=== PATIENT | male | born 1950 | race Caucasian/White ===

== ENCOUNTER 2017-04-15 12:13 | Inpatient (IN) ==
[2017-04-15] MEDS ORDERED: PANTOPRAZOLE 40 MG VIAL IV STA (12:47)
[2017-04-15] MEDS ORDERED: ONDANSETRON 4 MG/2 ML VIAL IV STA (12:47)
[2017-04-15] MEDS ORDERED: SODIUM CHLORIDE 0.9% 1,000 ML IV STA (12:47)
[2017-04-15 13:04] LABS: Basophils % 0.6 % (0.0-0.8); Eosinophils # 0.2 10*3/uL (0.0-0.87); Eosinophils % 2.8 % (0.00-10.9); Hematocrit 43.9 VOL% (42.0-52.0); Hemoglobin 15.7 GM/DL (14.0-18.0); Immature Granulocytes % 0.2 %; Immature Granulocytes Absolute 0.01 #; Lymphocytes # 1.5 10*3/uL (1.4-4.0); Mean Corpuscular HGB Conc 35.8 GM/DL (32-36); Mean Corpuscular Hemoglobin 33 PG (27-34); Mean Corpuscular Volume 93.2 FL (87-102); Mean Platelet Volume 9.1 FL (9.6-12.0); Monocytes # 0.4 10*3/uL (0.11-0.8); Monocytes % 8.1 % (1.7-12.7); Neutrophils # 3.3 10*3/uL (1.4-7.4); Neutrophils % 61.3 % (38.7-73.9); Platelet Count 140 T/CUMM (130-400); Red Blood Count 4.71 MC/CUMM (3.8-5.5); Red Cell Distribution Width 12.6 % (9.3-17.3); White Blood Count 5.4 T/CUMM (4-12)
[2017-04-15] MEDS ORDERED: ONDANSETRON 4 MG/2 ML VIAL ONE (13:07)
[2017-04-15] MEDS ORDERED: PANTOPRAZOLE 40 MG VIAL IV ONE (13:07)
[2017-04-15 13:14] LABS: INR 1.1; PT Patient Result 11.3 SECS; Partial Thromboplastin Time 30.1 SECS (0-40)
[2017-04-15 13:30] LABS: Bilirubin,Total 1.4 MG/DL (0.2-1.0); Calcium 9.1 MG/DL (8.5-10.1); Osmolality,Calculated 276.7 MOS/KG (273-304); Potassium 3.9 MMOL/L (3.5-5.1); Total Protein 7.5 G/DL (6.4-8.3)
[2017-04-15] MEDS ORDERED: BISACODYL 5 MG TABLET PO PRN (14:32)
[2017-04-15] MEDS ORDERED: ACETAMINOPHEN 325 MG TABLET PO PRN (14:32)
[2017-04-15] MEDS ORDERED: ONDANSETRON 4 MG/2 ML VIAL IV PRN (14:32)
[2017-04-15] MEDS ORDERED: NITROGLYCERIN SL 0.4 MG TABLET SL PRN (14:35)
[2017-04-15] MEDS ORDERED: ALBUTEROL 2.5 MG/3 ML NEB RESP TX PRN (15:30)
[2017-04-15] MEDS: DEXTROSE 5% NACL 0.45% 1,000 ML IV SCH (16:05)
[2017-04-15] MEDS: tiZANidine 4 MG TABLET PO SCH ×2 (16:09→21:41)
[2017-04-15] MEDS ORDERED: ASPIRIN EC 81 MG TABLET PO SCH (17:12)
[2017-04-15] MEDS ORDERED: CLOPIDOGREL 75 MG TABLET PO SCH (17:13)
[2017-04-15] MEDS ORDERED: ZALEPLON 5 MG CAPSULE PO PRN (21:00)
[2017-04-15] MEDS: ROSUVASTATIN 10 MG TABLET PO SCH (21:40)
[2017-04-15] MEDS: GABAPENTIN 300 MG CAPSULE PO SCH (21:41)
[2017-04-15] MEDS: CARVEDILOL 6.25 MG TABLET PO SCH (21:41)
[2017-04-15] MEDS: CLOPIDOGREL 75 MG TABLET PO SCH (21:54)
[2017-04-15] MEDS: ASPIRIN EC 81 MG TABLET PO SCH (21:54)
[2017-04-15] MEDS: MOMETASONE 220 MCG/PUFF INHALER 14 DOSE INH SCH (21:56)
[2017-04-16] MEDS: DEXTROSE 5% NACL 0.45% 1,000 ML IV SCH ×4 (01:19→19:30)
[2017-04-16 06:50] LABS: Basophils % 0.5 % (0.0-0.8); Eosinophils # 0.2 10*3/uL (0.0-0.87); Eosinophils % 5.3 % (0.00-10.9); Hemoglobin 13.6 GM/DL (14.0-18.0); Immature Granulocytes % 0.3 %; Immature Granulocytes Absolute 0.01 #; Lymphocytes # 1.1 10*3/uL (1.4-4.0); Lymphocytes % 27.5 % (21.2-54.2); Mean Corpuscular HGB Conc 34.9 GM/DL (32-36); Mean Corpuscular Hemoglobin 34 PG (27-34); Mean Corpuscular Volume 96.3 FL (87-102); Mean Platelet Volume 9.4 FL (9.6-12.0); Monocytes # 0.5 10*3/uL (0.11-0.8); Monocytes % 11.3 % (1.7-12.7); Neutrophils # 2.2 10*3/uL (1.4-7.4); Neutrophils % 55.1 % (38.7-73.9); Platelet Count 114 T/CUMM (130-400); Red Blood Count 4.05 MC/CUMM (3.8-5.5); Red Cell Distribution Width 12.8 % (9.3-17.3)
[2017-04-16 07:26] LABS: Osmolality,Calculated 284.1 MOS/KG (273-304); Potassium 3.6 MMOL/L (3.5-5.1)
[2017-04-16] MEDS: CHOLECALCIFEROL 1,000 UNIT TABLET PO SCH (09:29)
[2017-04-16] MEDS: CLOPIDOGREL 75 MG TABLET PO SCH (09:29)
[2017-04-16] MEDS: PANTOPRAZOLE 40 MG TABLET PO SCH (09:29)
[2017-04-16] MEDS: CARVEDILOL 6.25 MG TABLET PO SCH ×2 (09:29→20:35)
[2017-04-16] MEDS: CITALOPRAM 20 MG TABLET PO SCH (09:29)
[2017-04-16] MEDS: ASPIRIN EC 81 MG TABLET PO SCH (09:29)
[2017-04-16] MEDS: Cyanocobalamin (Vitamin B-12) [Vitamin B-12] 2,500 MCG SL SCH (09:30)
[2017-04-16] MEDS: Tiotropium Br/Olodaterol Hcl [Stiolto Respimat Inhal Spray] 2 PU IH SCH (09:30)
[2017-04-16] MEDS: tiZANidine 4 MG TABLET PO SCH ×3 (09:30→20:36)
[2017-04-16] MEDS: FOLIC ACID 1 MG TABLET PO SCH (09:30)
[2017-04-16] MEDS: LOSARTAN/HCTZ 50-12.5 MG TABLET PO SCH (09:34)
[2017-04-16] MEDS: ROSUVASTATIN 10 MG TABLET PO SCH (20:35)
[2017-04-16] MEDS: GABAPENTIN 300 MG CAPSULE PO SCH (20:36)
[2017-04-16] MEDS: MOMETASONE 220 MCG/PUFF INHALER 14 DOSE INH SCH (20:36)
[2017-04-17] MEDS: DEXTROSE 5% NACL 0.45% 1,000 ML IV SCH ×2 (03:02→12:37)
[2017-04-17 06:29] LABS: Basophils % 0.5 % (0.0-0.8); Eosinophils # 0.2 10*3/uL (0.0-0.87); Eosinophils % 5.7 % (0.00-10.9); Hematocrit 39.8 VOL% (42.0-52.0); Hemoglobin 13.5 GM/DL (14.0-18.0); Immature Granulocytes % 0.3 %; Immature Granulocytes Absolute 0.01 #; Lymphocytes # 1.3 10*3/uL (1.4-4.0); Lymphocytes % 35.7 % (21.2-54.2); Mean Corpuscular HGB Conc 33.9 GM/DL (32-36); Mean Corpuscular Hemoglobin 33 PG (27-34); Mean Corpuscular Volume 96.1 FL (87-102); Mean Platelet Volume 9.6 FL (9.6-12.0); Monocytes # 0.4 10*3/uL (0.11-0.8); Monocytes % 11.1 % (1.7-12.7); Neutrophils # 1.7 10*3/uL (1.4-7.4); Neutrophils % 46.7 % (38.7-73.9); Platelet Count 110 T/CUMM (130-400); Red Blood Count 4.14 MC/CUMM (3.8-5.5); Red Cell Distribution Width 12.9 % (9.3-17.3); White Blood Count 3.7 T/CUMM (4-12)
[2017-04-17] MEDS: CHOLECALCIFEROL 1,000 UNIT TABLET PO SCH (09:02)
[2017-04-17] MEDS: CLOPIDOGREL 75 MG TABLET PO SCH (09:02)
[2017-04-17] MEDS: CITALOPRAM 20 MG TABLET PO SCH (09:02)
[2017-04-17] MEDS: LOSARTAN/HCTZ 50-12.5 MG TABLET PO SCH (09:02)
[2017-04-17] MEDS: CARVEDILOL 6.25 MG TABLET PO SCH (09:03)
[2017-04-17] MEDS: PANTOPRAZOLE 40 MG TABLET PO SCH (09:03)
[2017-04-17] MEDS: ASPIRIN EC 81 MG TABLET PO SCH (09:03)
[2017-04-17] MEDS: FOLIC ACID 1 MG TABLET PO SCH (09:03)
[2017-04-17] MEDS: tiZANidine 4 MG TABLET PO SCH (09:03)
[2017-04-17] MEDS: Tiotropium Br/Olodaterol Hcl [Stiolto Respimat Inhal Spray] 2 PU IH SCH (09:05)
[2017-04-17] MEDS: Cyanocobalamin (Vitamin B-12) [Vitamin B-12] 2,500 MCG SL SCH (09:05)
[2017-04-17 12:33] VITALS: BP 152/80
== END 2017-04-17 13:08 | disposition home or self-care (01) | DRG 394 ==
LOC: N.ED 12:13 → N.EDINP 13:58 → SUATTDRO 13:58 → N.5E 15:09
PROVIDERS: ADMIT Internal Medicine Cardiovascular Disease; ATTEND Internal Medicine

== ENCOUNTER 2020-06-10 09:00 | Inpatient (IN) ==
[2020-06-10] MEDS ORDERED: ONDANSETRON 4 MG/2 ML VIAL IV STA (10:22)
[2020-06-10] MEDS ORDERED: PANTOPRAZOLE 40 MG VIAL IV STA (10:22)
[2020-06-10] MEDS ORDERED: SODIUM CHLORIDE 0.9% 1,000 ML IV STA (10:22)
[2020-06-10 11:01] LABS: Basophils % 0.7 % (0.0-0.8); Eosinophils # 0.1 10*3/uL (0.0-0.87); Eosinophils % 2.4 % (0.00-10.9); Hematocrit 38.6 VOL% (42.0-52.0); Hemoglobin 12.8 GM/DL (14.0-18.0); Immature Granulocytes % 0.2 %; Immature Granulocytes Absolute 0.01 #; Lymphocytes # 1.3 10*3/uL (1.4-4.0); Lymphocytes % 23.9 % (21.2-54.2); Mean Corpuscular HGB Conc 33.2 GM/DL (32-36); Mean Corpuscular Volume 93.7 FL (87-102); Mean Platelet Volume 8.9 FL (9.6-12.0); Monocytes % 9.4 % (1.7-12.7); Neutrophils % 63.4 % (38.7-73.9); Platelet Count 184 T/CUMM (130-400); Red Blood Count 4.12 MC/CUMM (3.8-5.5); Red Cell Distribution Width 14.5 % (9.3-17.3); White Blood Count 5.4 T/CUMM (4-12)
[2020-06-10 11:23] LABS: Albumin 3.4 G/DL (3.4-5.0); Bilirubin,Total 0.6 MG/DL (0.2-1.0); Calcium 8.6 MG/DL (8.5-10.1); Osmolality,Calculated 283.5 MOS/KG (273-304); Total Protein 6.6 G/DL (6.4-8.3)
[2020-06-10 12:18] LABS: INR 1.1; PT Patient Result 11.6 SECS (9.8-11.9); Partial Thromboplastin Time 30.8 SECS (23.9-33.8)
[2020-06-10] MEDS ORDERED: HYOSCYAMINE 0.125 MG TABLET SL PRN (14:35)
[2020-06-10] MEDS ORDERED: NITROGLYCERIN SL 0.4 MG TABLET SL PRN (14:35)
[2020-06-10] MEDS ORDERED: tiZANidine 4 MG TABLET PO PRN (14:35)
[2020-06-10] MEDS ORDERED: BISACODYL 5 MG TABLET PO PRN (14:39)
[2020-06-10] MEDS ORDERED: PROMETHAZINE 25 MG/1 ML VIAL IM PRN (14:39)
[2020-06-10] MEDS ORDERED: ZALEPLON 5 MG CAPSULE PO PRN (14:39)
[2020-06-10] MEDS ORDERED: DEXTROSE 50% 25 GM/50 ML VIAL IV PRN (14:39)
[2020-06-10] MEDS ORDERED: ALBUTEROL 2.5 MG/3 ML NEB RESP TX PRN (14:39)
[2020-06-10] MEDS ORDERED: ALBUTEROL/IPRATROPIUM 3 ML NEB RESP TX PRN (14:39)
[2020-06-10] MEDS ORDERED: ACETAMINOPHEN 325 MG TABLET PO PRN (14:39)
[2020-06-10] MEDS ORDERED: DOCUSATE SODIUM 100 MG CAPSULE PO PRN (14:39)
[2020-06-10] MEDS ORDERED: guaiFENesin/DM ER 600-30 MG TABLET PO PRN (14:39)
[2020-06-10] MEDS ORDERED: LACTULOSE 20 GM/30 ML UDCUP PO PRN (14:39)
[2020-06-10] MEDS ORDERED: diphenhydrAMINE CAP 25 MG CAPSULE PO PRN (14:39)
[2020-06-10] MEDS ORDERED: NICOTINE 21 MG/24 HR PATCH TRANSDERM PRN (14:39)
[2020-06-10] MEDS ORDERED: ONDANSETRON 4 MG/2 ML VIAL IV PRN (14:39)
[2020-06-10] MEDS ORDERED: GLUCAGON 1 MG VIAL IM PRN (14:39)
[2020-06-10] MEDS ORDERED: hydrALAZINE 20 MG/1 ML VIAL IV PRN (14:39)
[2020-06-10] MEDS ORDERED: LORazepam 1 MG TABLET PO PRN (14:46)
[2020-06-10] MEDS ORDERED: MORPHINE 4 MG/1 ML VIAL IV PRN (15:28)
[2020-06-10] MEDS ORDERED: SODIUM CHLORIDE 0.9% 100 ML IV ONE (15:38)
[2020-06-10] MEDS ORDERED: PIPERACILLIN/TAZOBACTAM 3,375 MG VIAL IV ONE (15:38)
[2020-06-10] MEDS: PIPERACILLIN/TAZOBACTAM 3,375 MG in SODIUM CHLORIDE 0.9% 100 ML IV SCH (15:40)
[2020-06-10 17:33] LABS: Basophils # 0.1 10*3/uL (0.0-0.2); Basophils % 0.8 % (0.0-0.8); Eosinophils # 0.2 10*3/uL (0.0-0.87); Eosinophils % 2.7 % (0.00-10.9); Hematocrit 40.8 VOL% (42.0-52.0); Immature Granulocytes % 0.5 %; Immature Granulocytes Absolute 0.03 #; Lymphocytes # 1.8 10*3/uL (1.4-4.0); Mean Corpuscular HGB Conc 31.9 GM/DL (32-36); Mean Corpuscular Volume 96.2 FL (87-102); Mean Platelet Volume 9.2 FL (9.6-12.0); Platelet Count 201 T/CUMM (130-400); Red Blood Count 4.24 MC/CUMM (3.8-5.5); Red Cell Distribution Width 14.6 % (9.3-17.3); White Blood Count 6.6 T/CUMM (4-12)
[2020-06-10 21:00] LABS: Hematocrit 31.5 VOL% (42.0-52.0); Hemoglobin 10.4 GM/DL (14.0-18.0)
[2020-06-10] MEDS ORDERED: CARVEDILOL 12.5 MG PO SCH (21:00)
[2020-06-10] MEDS: GABAPENTIN 300 MG CAPSULE PO SCH (21:40)
[2020-06-10] MEDS: ROSUVASTATIN 10 MG TABLET PO SCH (21:40)
[2020-06-10] MEDS: PANTOPRAZOLE 40 MG VIAL IV SCH (21:40)
[2020-06-10] MEDS: BUDESONIDE/FORMOTEROL 80-4.5 INHALER 6.9 GM INH SCH (21:44)
[2020-06-11] MEDS: PIPERACILLIN/TAZOBACTAM 3,375 MG in SODIUM CHLORIDE 0.9% 100 ML IV SCH ×4 (00:03→22:37)
[2020-06-11] MEDS ORDERED: SODIUM CHLORIDE 0.9% 1,000 ML IV PRN (03:52)
[2020-06-11 04:00] LABS: Hematocrit 28.4 VOL% (42.0-52.0); Hemoglobin 9.1 GM/DL (14.0-18.0)
[2020-06-11 04:22] LABS: Albumin 2.5 G/DL (3.4-5.0); Bilirubin,Total 1.1 MG/DL (0.2-1.0); Osmolality,Calculated 283.3 MOS/KG (273-304); Risk Ratio 2.61; Total Protein 5.5 G/DL (6.4-8.3)
[2020-06-11] MEDS ORDERED: MAGNESIUM CHLORIDE 64 MG PO SCH (09:00)
[2020-06-11] MEDS ORDERED: LOSARTAN HYDROCHLOROTHIAZIDE PO SCH (09:00)
[2020-06-11] MEDS ORDERED: [UNRECOGNIZED DRUG - OTHER] PO SCH (09:00)
[2020-06-11] MEDS ORDERED: AMLODIPINE 5 MG PO SCH (09:00)
[2020-06-11 09:12] LABS: Hematocrit 28.6 VOL% (42.0-52.0); Hemoglobin 9.3 GM/DL (14.0-18.0)
[2020-06-11] MEDS: PANTOPRAZOLE 40 MG VIAL IV SCH ×2 (09:13→20:40)
[2020-06-11] MEDS: CHOLECALCIFEROL 1,000 UNIT TABLET PO SCH (09:14)
[2020-06-11] MEDS: traMADol 50 MG TABLET PO SCH (09:14)
[2020-06-11] MEDS: MULTIVITAMIN (CENTRUM) TABLET PO SCH (09:15)
[2020-06-11] MEDS: BUDESONIDE/FORMOTEROL 80-4.5 INHALER 6.9 GM INH SCH ×2 (09:15→20:41)
[2020-06-11] MEDS: ZINC GLUCONATE 50 MG TABLET PO SCH (09:15)
[2020-06-11] MEDS: FOLIC ACID 1 MG TABLET PO SCH (09:15)
[2020-06-11] MEDS: CITALOPRAM 20 MG TABLET PO SCH (09:15)
[2020-06-11] MEDS: THIAMINE 100 MG TABLET PO SCH (09:15)
[2020-06-11 17:53] LABS: Hematocrit 34.2 VOL% (42.0-52.0)
[2020-06-11 17:55] LABS: Hemoglobin 11.4 GM/DL (14.0-18.0)
[2020-06-11] MEDS: ROSUVASTATIN 10 MG TABLET PO SCH (20:41)
[2020-06-11] MEDS: GABAPENTIN 300 MG CAPSULE PO SCH (20:41)
[2020-06-12] MEDS: PIPERACILLIN/TAZOBACTAM 3,375 MG in SODIUM CHLORIDE 0.9% 100 ML IV SCH ×3 (06:08→22:33)
[2020-06-12 06:11] LABS: Albumin 2.7 G/DL (3.4-5.0); Calcium 8.4 MG/DL (8.5-10.1); Osmolality,Calculated 283.1 MOS/KG (273-304); Total Protein 5.9 G/DL (6.4-8.3)
[2020-06-12] MEDS: CITALOPRAM 20 MG TABLET PO SCH (09:50)
[2020-06-12] MEDS: THIAMINE 100 MG TABLET PO SCH (09:50)
[2020-06-12] MEDS: traMADol 50 MG TABLET PO SCH (09:51)
[2020-06-12] MEDS: FOLIC ACID 1 MG TABLET PO SCH (09:52)
[2020-06-12] MEDS: ZINC GLUCONATE 50 MG TABLET PO SCH (09:52)
[2020-06-12] MEDS: MULTIVITAMIN (CENTRUM) TABLET PO SCH (09:52)
[2020-06-12] MEDS: CHOLECALCIFEROL 1,000 UNIT TABLET PO SCH (09:52)
[2020-06-12] MEDS: PANTOPRAZOLE 40 MG VIAL IV SCH ×2 (09:54→21:05)
[2020-06-12] MEDS: BUDESONIDE/FORMOTEROL 80-4.5 INHALER 6.9 GM INH SCH ×2 (09:54→21:09)
[2020-06-12 10:42] LABS: Basophils % 0.6 % (0.0-0.8); Eosinophils # 0.2 10*3/uL (0.0-0.87); Eosinophils % 4.9 % (0.00-10.9); Hematocrit 36.7 VOL% (42.0-52.0); Hemoglobin 12.1 GM/DL (14.0-18.0); Immature Granulocytes % 0.2 %; Immature Granulocytes Absolute 0.01 #; Lymphocytes # 1.4 10*3/uL (1.4-4.0); Lymphocytes % 28.7 % (21.2-54.2); Mean Corpuscular Volume 92.9 FL (87-102); Mean Platelet Volume 8.9 FL (9.6-12.0); Monocytes % 11.3 % (1.7-12.7); Neutrophils % 54.3 % (38.7-73.9); Platelet Count 154 T/CUMM (130-400); Red Blood Count 3.95 MC/CUMM (3.8-5.5); Red Cell Distribution Width 15.4 % (9.3-17.3); White Blood Count 4.7 T/CUMM (4-12)
[2020-06-12] MEDS: BISACODYL 5 MG TABLET PO SCH ×3 (10:51→16:40)
[2020-06-12] MEDS: amLODIPine 5 MG TABLET PO SCH (12:02)
[2020-06-12] MEDS: carvediloL 12.5 MG TABLET PO SCH ×2 (12:02→21:08)
[2020-06-12] MEDS ORDERED: POLYETHYLENE GLYCOL POWDER 255 GM BOTTLE PO ONE (18:00)
[2020-06-12] MEDS ORDERED: MAGNESIUM CITRATE 300 ML BOTTLE PO ONE (21:00)
[2020-06-12] MEDS: GABAPENTIN 300 MG CAPSULE PO SCH (21:08)
[2020-06-12] MEDS: ROSUVASTATIN 10 MG TABLET PO SCH (21:08)
[2020-06-13] MEDS: BISACODYL 5 MG TABLET PO SCH (00:48)
[2020-06-13 05:44] LABS: Basophils % 0.6 % (0.0-0.8); Eosinophils # 0.3 10*3/uL (0.0-0.87); Eosinophils % 4.2 % (0.00-10.9); Hematocrit 39.7 VOL% (42.0-52.0); Hemoglobin 12.9 GM/DL (14.0-18.0); Immature Granulocytes % 0.2 %; Lymphocytes # 1.5 10*3/uL (1.4-4.0); Lymphocytes % 23.3 % (21.2-54.2); Mean Corpuscular HGB Conc 32.5 GM/DL (32-36); Mean Corpuscular Volume 94.7 FL (87-102); Mean Platelet Volume 9.3 FL (9.6-12.0); Neutrophils % 62.7 % (38.7-73.9); Platelet Count 183 T/CUMM (130-400); Red Blood Count 4.19 MC/CUMM (3.8-5.5); Red Cell Distribution Width 15.1 % (9.3-17.3); White Blood Count 6.5 T/CUMM (4-12)
[2020-06-13 05:45] LABS: Immature Granulocytes Absolute 0.01 #
[2020-06-13] MEDS: PIPERACILLIN/TAZOBACTAM 3,375 MG in SODIUM CHLORIDE 0.9% 100 ML IV SCH (06:02)
[2020-06-13 06:04] LABS: Albumin 3.4 G/DL (3.4-5.0); Bilirubin,Total 0.9 MG/DL (0.2-1.0); Calcium 9.2 MG/DL (8.5-10.1); Osmolality,Calculated 278.4 MOS/KG (273-304); Total Protein 7.6 G/DL (6.4-8.3)
[2020-06-13] MEDS ORDERED: LACTATED RINGERS 1,000 ML IV SCH (07:00)
[2020-06-13] MEDS ORDERED: LIDOCAINE 2% 5 ML VIAL ONE (07:21)
[2020-06-13] MEDS ORDERED: propofoL 200 MG/20 ML VIAL IV ONE ×2 (07:21→08:13)
[2020-06-13 08:54] VITALS: BP 155/77
[2020-06-13] MEDS ORDERED: ASPIRIN EC 81 MG TABLET PO SCH (09:00)
[2020-06-13] MEDS ORDERED: LOSARTAN 25 MG TABLET PO SCH (09:00)
[2020-06-13] MEDS: CHOLECALCIFEROL 1,000 UNIT TABLET PO SCH (09:27)
[2020-06-13] MEDS: ZINC GLUCONATE 50 MG TABLET PO SCH (09:27)
[2020-06-13] MEDS: FOLIC ACID 1 MG TABLET PO SCH (09:27)
[2020-06-13] MEDS: THIAMINE 100 MG TABLET PO SCH (09:27)
[2020-06-13] MEDS: CITALOPRAM 20 MG TABLET PO SCH (09:27)
[2020-06-13] MEDS: MULTIVITAMIN (CENTRUM) TABLET PO SCH (09:27)
[2020-06-13] MEDS: traMADol 50 MG TABLET PO SCH (09:28)
[2020-06-13] MEDS: PANTOPRAZOLE 40 MG VIAL IV SCH (09:28)
[2020-06-13] MEDS: carvediloL 12.5 MG TABLET PO SCH (09:32)
[2020-06-13] MEDS: amLODIPine 5 MG TABLET PO SCH (09:33)
[2020-06-13] MEDS: BUDESONIDE/FORMOTEROL 80-4.5 INHALER 6.9 GM INH SCH (09:33)
== END 2020-06-13 11:40 | disposition home or self-care (01) | DRG 378 ==
LOC: N.EDINP 09:00 → N.ED 09:00 → N.5E 15:46 → SUATTDRO 06-11 07:43
PROVIDERS: ADMIT Internal Medicine; ATTEND Internal Medicine